=== PATIENT | female | born 1995 | race Two or more races ===

== ENCOUNTER 2016-11-26 23:42 | Emergency (ER) | payer BC, MEDICAID ==
[~2016-11-26] VITALS: Ht 160 cm; Wt 59.0 kg
[2016-11-26 23:52] VITALS: BP 129/75
--- NOTE | 2016-11-27 03:06 | NUR ---
ROSITA CALLED; REQUESTED EXPIDITED READ OF CT FROM RADIOLOGIST.
== END 2016-11-27 03:58 | disposition home or self-care (01) ==
LOC: ER 23:42
DX: S92.901A Unspecified fracture of right foot, initial encounter for closed fracture (principal); V49.60XA Unspecified car occupant injured in collision with unspecified motor vehicles in traffic accident, initial encounter; Y93.89 Activity, other specified; Y92.413 State road as the place of occurrence of the external cause; Y99.8 Other external cause status
CPT/HCPCS: 29515; 73630; 73700; 99284; A4606; Z7610